=== PATIENT | female | born 1965 | race Caucasian/White ===

== ENCOUNTER → 2017-03-25 | Outpatient (CLI) | payer OTHER | END | disposition home or self-care (01) | LOC: CDC 11:16 | DX: G56.02 Carpal tunnel syndrome, left upper limb (principal); M79.642 Pain in left hand; M65.322 Trigger finger, left index finger; M65.332 Trigger finger, left middle finger | CPT/HCPCS: 93000 ==

== ENCOUNTER 2017-07-17 22:22 | Emergency (ER) | payer OTHER ==
[~2017-07-17] VITALS: Ht 162.6 cm; Wt 75.7 kg
[2017-07-18 03:34] LABS: HEMATOCRIT 38.2 % (36.0-46.0); MCH 29.1 PG (29.0-34.0); MCHC 33.8 G/DL (30.0-36.0); MCV 86.2 FL (83-99); MEAN PLAT.VOLUME 9.1 uM^3 (9.5-12.4); PLATELET COUNT 307 K/uL (156-360); RBC DIS.WIDTH-SD 40.7 % (39-53); RED BLOOD COUNT 4.43 M/uL (3.80-5.20); WHITE BLOOD COUNT 8.4 K/uL (4.1-10.2)
[2017-07-18 03:43] LABS: CHLORIDE 102 mEq/L (99-109); POTASSIUM 3.8 mEq/L (3.7-5.4); SODIUM 135 mEq/L (136-147)
[2017-07-18 03:45] LABS: GLUCOSE 139 mg/dL (70-99)
[2017-07-18 03:46] LABS: ANION GAP 11 MEQ/L (2-14)
[2017-07-18 03:49] LABS: GFR ESTIMATE (CALCULATED) > 59 mL/min/
[2017-07-18 03:50] LABS: UREA NITROGEN (BUN) 16 mg/dL (9-23)
[2017-07-18] MEDS ORDERED: BACTRIM,SEPT1 TABLET PO (04:11)
[2017-07-18] MEDS ORDERED: MOTRIN600 MG PO (04:18)
[2017-07-18 04:58] VITALS: BP 141/87
== END 2017-07-18 05:01 | disposition home or self-care (01) ==
LOC: EME 22:22
PROVIDERS: Physician Assistant
DX: L03.113 Cellulitis of right upper limb (principal); E11.9 Type 2 diabetes mellitus without complications; Z79.4 Long term (current) use of insulin; Z86.14 Personal history of Methicillin resistant Staphylococcus aureus infection
CPT/HCPCS: 73110; 80048; 83605; 85027; 87040; 99281; 99285; J3010; S0039

== ENCOUNTER 2017-07-20 12:32 | Inpatient (IN) | payer OTHER ==
[~2017-07-20] VITALS: Ht 162.6 cm; Wt 75.4 kg
[~2017-07-20 12:32] MED LIST: BACTRIM,SEPT1 TABLET PO; MOTRIN600 MG PO
[2017-07-20 14:13] VITALS: BP 123/60
[2017-07-20 14:19] VITALS: BP 124/69
[2017-07-20 14:47] LABS: ANION GAP 13 MEQ/L (2-14); C-REACTIVE PROTEIN 145.1 MG/L (0-10); CHLORIDE 102 MEQ/L (99-109); GFR ESTIMATE (CALCULATED) 39 mL/min/; GLUCOSE 286 mg/dL (70-99); POTASSIUM 4.6 MEQ/L (3.7-5.4); SAMPLE HEMOLYSIS CHECK 0; SAMPLE ICTERIC CHECK 0; SAMPLE LIPEMIA CHECK 0; SODIUM 133 MEQ/L (136-147); UREA NITROGEN (BUN) 28 mg/dL (9-23)
[2017-07-20] MEDS ORDERED: SYNTHROID125 MCG PO (15:10)
[2017-07-20] MEDS ORDERED: GLUCOPHAGE500 MG PO (15:11)
[2017-07-20] MEDS ORDERED: NEURONTIN600 MG PO (15:12)
[2017-07-20] MEDS ORDERED: AMARYL4 MG PO (15:13)
[2017-07-20] MEDS ORDERED: PREVACID30 MG PO (15:15)
[2017-07-20] MEDS ORDERED: BUSPAR30 MG PO (15:17)
[2017-07-20] MEDS ORDERED: RITALIN5 MG PO (15:18)
[2017-07-20] MEDS ORDERED: ALDACTONE50 MG PO (15:18)
[2017-07-20] MEDS ORDERED: INVOKANA100 MG PO (15:19)
[2017-07-20] MEDS ORDERED: ADULT LOW DOSE81 M1 PO (15:21)
[2017-07-20] MEDS ORDERED: VITAMIN D2000 UNI1 PO (15:21)
[2017-07-20] MEDS ORDERED: TOPAMAX50 MG PO (15:22)
[2017-07-20] MEDS ORDERED: LISINOPRIL10 MG PO (15:22)
[2017-07-20] MEDS ORDERED: LEXAPRO20 MG PO (15:23)
[2017-07-20 15:27] LABS: HEMATOCRIT 36.3 % (36.0-46.0); MCH 29.8 PG (29.0-34.0); MCHC 33.6 G/DL (30.0-36.0); MCV 88.8 FL (83-99); MEAN PLAT.VOLUME 9.8 uM^3 (9.5-12.4); PLATELET COUNT 336 K/uL (156-360); RBC DIS.WIDTH-CV 13.2 % (11.8-14.6); RBC DIS.WIDTH-SD 42.6 % (39-53); RED BLOOD COUNT 4.09 M/uL (3.80-5.20); WHITE BLOOD COUNT 5.9 K/uL (4.1-10.2)
[2017-07-20 16:07] LABS: ERTH.SED.RATE 84 MM/HR (0-20)
[2017-07-20 16:24] VITALS: BP 124/69
[2017-07-20] MEDS ORDERED: LANTUS 3 M100 UNITS1 SC (16:37)
[2017-07-20 23:24] VITALS: BP 123/74
[2017-07-21 05:00] VITALS: BP 141/73
[2017-07-21 07:29] VITALS: BP 109/57
[2017-07-21 10:15] LABS: POINT-OF-CARE METER ID UU14188577
[2017-07-21 11:18] VITALS: BP 112/57
[2017-07-21 11:31] LABS: POINT-OF-CARE METER ID UU14188577
[2017-07-21 15:45] VITALS: BP 130/77
[2017-07-21 16:25] LABS: POINT-OF-CARE METER ID UU14188577
[2017-07-21 23:45] VITALS: BP 108/62
[2017-07-22 07:22] LABS: ANION GAP 12 MEQ/L (2-14); CHLORIDE 106 MEQ/L (99-109); GFR ESTIMATE (CALCULATED) 46 mL/min/; GLUCOSE 225 mg/dL (70-99); SAMPLE HEMOLYSIS CHECK 1; SAMPLE ICTERIC CHECK 0; SAMPLE LIPEMIA CHECK 0; SODIUM 138 MEQ/L (136-147); UREA NITROGEN (BUN) 29 mg/dL (9-23)
[2017-07-22 07:27] LABS: POTASSIUM 5.6 MEQ/L (3.7-5.4)
[2017-07-22 07:40] VITALS: BP 96/57
[2017-07-22 11:14] LABS: POINT-OF-CARE METER ID UU14188577
[2017-07-22 13:51] LABS: Estimated Average Glucose 246 mg/dL (70-123)
[2017-07-22 13:52] LABS: HEMOGLOBIN A1c (GLYCOHEMOGLOB) 10.2 % HGB (Below 5.7)
[2017-07-22 13:59] LABS: ANION GAP 10 MEQ/L (2-14); CHLORIDE 107 MEQ/L (99-109); GFR ESTIMATE (CALCULATED) 51 mL/min/; GLUCOSE 181 mg/dL (70-99); POTASSIUM 5.4 MEQ/L (3.7-5.4); SAMPLE HEMOLYSIS CHECK 0; SAMPLE ICTERIC CHECK 0; SAMPLE LIPEMIA CHECK 0; SODIUM 139 MEQ/L (136-147); UREA NITROGEN (BUN) 27 mg/dL (9-23)
[2017-07-22 15:31] VITALS: BP 107/65
[2017-07-22 16:32] LABS: POINT-OF-CARE METER ID UU14188577
[2017-07-22 20:08] LABS: POINT-OF-CARE METER ID UU13113675
[2017-07-22 20:44] VITALS: BP 127/72
[2017-07-22 21:48] LABS: POINT-OF-CARE METER ID UU14117124
[2017-07-22 22:06] LABS: POINT-OF-CARE METER ID UU14188577
[2017-07-23 00:01] VITALS: BP 110/56
[2017-07-23 03:23] VITALS: BP 116/57
[2017-07-23 06:39] LABS: POINT-OF-CARE METER ID UU14188577
[2017-07-23 06:43] LABS: HEMATOCRIT 32.8 % (36.0-46.0); MCH 29.1 PG (29.0-34.0); MCV 90.9 FL (83-99); MEAN PLAT.VOLUME 8.9 uM^3 (9.5-12.4); PLATELET COUNT 343 K/uL (156-360); RBC DIS.WIDTH-CV 13.2 % (11.8-14.6); RBC DIS.WIDTH-SD 43.9 % (39-53); RED BLOOD COUNT 3.61 M/uL (3.80-5.20); WHITE BLOOD COUNT 4.5 K/uL (4.1-10.2)
[2017-07-23 07:13] LABS: ANION GAP 12 MEQ/L (2-14); C-REACTIVE PROTEIN 53.7 MG/L (0-10); CHLORIDE 108 MEQ/L (99-109); GFR ESTIMATE (CALCULATED) > 59 mL/min/; GLUCOSE 140 mg/dL (70-99); POTASSIUM 4.8 MEQ/L (3.7-5.4); SAMPLE HEMOLYSIS CHECK 0; SAMPLE ICTERIC CHECK 0; SAMPLE LIPEMIA CHECK 0; SODIUM 139 MEQ/L (136-147); UREA NITROGEN (BUN) 24 mg/dL (9-23)
[2017-07-23 07:46] VITALS: BP 100/59
[2017-07-23 12:08] LABS: POINT-OF-CARE METER ID UU14188577
[2017-07-23 16:01] VITALS: BP 113/73
[2017-07-23 16:56] LABS: METH RESISTANT S AUREUS PCR NEGATIVE (NEGATIVE)
[2017-07-23 16:58] LABS: PROBE CHECK PASS; SPECIMEN PROCESSING CONTROL PASS
[2017-07-23 17:05] LABS: POINT-OF-CARE METER ID UU14208753
[2017-07-23 22:12] LABS: POINT-OF-CARE METER ID UU14117124
[2017-07-23 23:05] VITALS: BP 113/62
[2017-07-24 06:52] LABS: POINT-OF-CARE METER ID UU14188577
[2017-07-24 07:08] LABS: HEMATOCRIT 33.3 % (36.0-46.0); MCH 29.8 PG (29.0-34.0); MCV 90.2 FL (83-99); MEAN PLAT.VOLUME 8.9 uM^3 (9.5-12.4); PLATELET COUNT 312 K/uL (156-360); RBC DIS.WIDTH-CV 12.8 % (11.8-14.6); RBC DIS.WIDTH-SD 42.5 % (39-53); RED BLOOD COUNT 3.69 M/uL (3.80-5.20); WHITE BLOOD COUNT 3.9 K/uL (4.1-10.2)
[2017-07-24 07:34] LABS: ANION GAP 8 MEQ/L (2-14); CHLORIDE 108 MEQ/L (99-109); GFR ESTIMATE (CALCULATED) > 59 mL/min/; GLUCOSE 184 mg/dL (70-99); POTASSIUM 4.6 MEQ/L (3.7-5.4); SAMPLE HEMOLYSIS CHECK 0; SAMPLE ICTERIC CHECK 0; SAMPLE LIPEMIA CHECK 0; SODIUM 139 MEQ/L (136-147); UREA NITROGEN (BUN) 21 mg/dL (9-23)
[2017-07-24 07:47] VITALS: BP 102/65
[2017-07-24 11:40] LABS: POINT-OF-CARE METER ID UU14117124
[2017-07-24 16:45] VITALS: BP 121/69
[2017-07-24 16:48] LABS: POINT-OF-CARE METER ID UU14208753
[2017-07-24 21:32] LABS: POINT-OF-CARE METER ID UU14188577
[2017-07-25 00:08] VITALS: BP 100/60
[2017-07-25 06:10] LABS: POINT-OF-CARE METER ID UU14208753
[2017-07-25 07:21] VITALS: BP 116/71
[2017-07-25 07:56] VITALS: BP 116/71
[2017-07-25 08:27] LABS: HEMATOCRIT 32.8 % (36.0-46.0); MCH 30.3 PG (29.0-34.0); MCHC 33.5 G/DL (30.0-36.0); MCV 90.4 FL (83-99); MEAN PLAT.VOLUME 8.7 uM^3 (9.5-12.4); PLATELET COUNT 351 K/uL (156-360); RBC DIS.WIDTH-CV 12.6 % (11.8-14.6); RBC DIS.WIDTH-SD 41.1 % (39-53); RED BLOOD COUNT 3.63 M/uL (3.80-5.20)
[2017-07-25 09:04] LABS: ANION GAP 12 MEQ/L (2-14); CHLORIDE 106 MEQ/L (99-109); GFR ESTIMATE (CALCULATED) > 59 mL/min/; GLUCOSE 175 mg/dL (70-99); POTASSIUM 4.5 MEQ/L (3.7-5.4); SAMPLE HEMOLYSIS CHECK 0; SAMPLE ICTERIC CHECK 0; SAMPLE LIPEMIA CHECK 0; SODIUM 140 MEQ/L (136-147); UREA NITROGEN (BUN) 20 mg/dL (9-23)
[2017-07-25] MEDS ORDERED: BENADRYL25 MG PO (10:24)
[2017-07-25] MEDS ORDERED: HYDROCODON-ACE1 EAC7 PO (10:26)
[2017-07-25] MEDS ORDERED: KEFLEX500 MG PO (10:26)
[2017-07-25 11:18] LABS: POINT-OF-CARE METER ID UU14208753
[2017-07-25 11:48] VITALS: BP 148/73
== END 2017-07-25 12:22 | disposition home or self-care (01) | DRG 580 ==
LOC: 3EAST 12:32 → ENRESERV 12:33 → 3EAST 13:16
PROVIDERS: Hospitalist; Internal Medicine Infectious Disease; Nurse Practitioner Adult Health; Orthopaedic Surgery; Orthopaedic Surgery Hand Surgery; Physician Assistant; Physician Assistant Surgical
DX: L02.511 Cutaneous abscess of right hand (principal); L03.113 Cellulitis of right upper limb; M65.9 Synovitis and tenosynovitis, unspecified; I10 Essential (primary) hypertension; E87.5 Hyperkalemia; E11.9 Type 2 diabetes mellitus without complications; D64.9 Anemia, unspecified
CPT/HCPCS: 73110; 73223; 80048; 80048 91; 80202; 82948; 83036; 83605; 85027; 85651; 86140; 87040; 87070; 87075; 87077; 87147; 87186; 87205; 87641; 99281; 99285; J0690; J1815; J2250; J2405; J2765; J3010; J3370; J7030; S0020; S0039

== ENCOUNTER 2017-12-02 10:17 | Emergency (ER) | payer OTHER ==
[~2017-12-02] VITALS: Ht 162.6 cm; Wt 77.5 kg
[~2017-12-02 10:17] MED LIST changes: +ADULT LOW DOSE81 M1 PO; +ALDACTONE50 MG PO; +AMARYL4 MG PO; +BENADRYL25 MG PO; +BUSPAR30 MG PO; +GLUCOPHAGE500 MG PO; +HYDROCODON-ACE1 EAC7 PO; +INVOKANA100 MG PO; +KEFLEX500 MG PO; +LANTUS 3 M100 UNITS1 SC; +LEXAPRO20 MG PO; +LISINOPRIL10 MG PO; +NEURONTIN600 MG PO; +PREVACID30 MG PO; +RITALIN5 MG PO; +SYNTHROID125 MCG PO; +TOPAMAX50 MG PO; +VITAMIN D2000 UNI1 PO
[2017-12-02] MEDS ORDERED: BASAGLAR K100 UNIT/1 SC (10:56)
[2017-12-02] MEDS ORDERED: CYCLOBENZAPRINE5 MG PO (10:57)
[2017-12-02] MEDS ORDERED: JARDIANCE25 MG PO (10:57)
[2017-12-02] MEDS ORDERED: ROSUVASTATIN CA20 MG PO (10:58)
[2017-12-02 12:27] LABS: HEMATOCRIT 39.1 % (36.0-46.0); HEMOGLOBIN 12.8 G/DL (11.9-15.5); MCH 28.4 PG (29.0-34.0); MCHC 32.7 G/DL (30.0-36.0); MCV 86.9 FL (83-99); PLATELET COUNT 365 K/uL (156-360); RBC DIS.WIDTH-CV 14.2 % (11.8-14.6); RBC DIS.WIDTH-SD 45.2 % (39-53); WHITE BLOOD COUNT 5.7 K/uL (4.1-10.2)
[2017-12-02 12:38] LABS: CHLORIDE 108 mEq/L (99-109); POTASSIUM 4.6 mEq/L (3.7-5.4); SODIUM 140 mEq/L (136-147)
[2017-12-02 12:40] LABS: GLUCOSE 80 mg/dL (70-99)
[2017-12-02 12:44] LABS: CREATININE 0.9 mg/dL (0.6-1.3); GFR ESTIMATE (CALCULATED) > 59 mL/min/; UREA NITROGEN (BUN) 18 mg/dL (9-23)
[2017-12-02 12:47] LABS: TROP-I INTERPRETATION NEGATIVE; TROPONIN-I < 0.01 ng/mL (0.0-0.30)
[2017-12-02 14:22] VITALS: BP 106/66
== END 2017-12-02 14:27 | disposition home or self-care (01) ==
LOC: EME 10:17
PROVIDERS: Emergency Medicine
DX: E11.65 Type 2 diabetes mellitus with hyperglycemia (principal); R42 Dizziness and giddiness; J45.909 Unspecified asthma, uncomplicated; F32.9 Major depressive disorder, single episode, unspecified; G43.909 Migraine, unspecified, not intractable, without status migrainosus; K21.9 Gastro-esophageal reflux disease without esophagitis; E03.9 Hypothyroidism, unspecified; Z79.4 Long term (current) use of insulin; Z79.84 Long term (current) use of oral hypoglycemic drugs; Z88.1 Allergy status to other antibiotic agents; Z88.5 Allergy status to narcotic agent
CPT/HCPCS: 80048; 82948; 84484; 85027; 93005; 99281; 99284